=== PATIENT | female | born 2000 | race African-American/Black ===

== ENCOUNTER 2023-04-15 16:43 | Emergency (ER) | payer OTHER, SELFPAY ==
[2023-04-15] MEDS ORDERED: Ketorolac Tromethamine 30 MG/ML VIAL ONE (17:17)
== END 2023-04-15 18:28 | disposition home or self-care (01) ==
LOC: ERS 16:43
DX: M25.512 Pain in left shoulder (principal)
CPT/HCPCS: J1885